=== PATIENT | male | born 1965 | race Caucasian/White ===

== ENCOUNTER 2022-10-29 18:15 | Inpatient (IN) | payer MEDICARE, OTHER ==
[~2022-10-29] VITALS: Ht 170.2 cm; Wt 71.2 kg
--- NOTE | 2022-10-29 18:30 | NUR ---
Pt brought by self,A&appropiate to age , pt presents to ER with intermittent nosebleed after he had heart surgery (stent )1 week ago at [facility] , no bleeding noted at this time , pt denies chest pain , c/o mild SOB , O2 98%, skin pink and warm, cap refill <3.
[2022-10-29 18:57] VITALS: BP_SYST 114
--- NOTE | 2022-10-29 19:00 | NUR ---
MD Rodrigues examining pt.
[2022-10-29 21:05] LABS: BASOPHILS % (AUTO) 0.2 % (0.0-2.0); EOSINOPHILS # (AUTO) 0.1 K/uL (0.0-0.4); EOSINOPHILS % (AUTO) 1.3 % (0.0-4.0); HEMATOCRIT 31.4 % (36-54); HEMOGLOBIN 10.6 g/dL (14.0-18.0); LYMPHOCYTES # (AUTO) 1.8 K/uL (1.0-5.5); LYMPHOCYTES % (AUTO) 15.9 % (20.5-51.5); MEAN CORPUSCULAR HEMOGLOBIN 28 pg (27-31); MEAN CORPUSCULAR HGB CONC 34 % (32-36); MEAN CORPUSCULAR VOLUME 84 fL (79.0-98.0); MONOCYTES # (AUTO) 1.2 K/uL (0.0-1.0); MONOCYTES % (AUTO) 10.9 % (1.7-9.3); NEUTROPHILS % (AUTO) 71.7 % (40.0-70.0); PLATELET COUNT (AUTO) 420 K/uL (130-430); RED BLOOD CELL COUNT(AUTO) 3.74 MIL/uL (4.2-6.2); RED CELL DISTRIBUTION WIDTH 12.9 % (9.0-15.0); WHITE BLOOD COUNT (AUTO) 11.1 K/uL (4.8-10.8)
[2022-10-29 21:25] LABS: CALCIUM 8.5 mg/dL (8.4-11.0); CREATININE 2.26 mg/dL (0.55-1.30)
[2022-10-29 21:30] LABS: ALBUMIN 2.4 g/dL (3.4-4.8); TOTAL BILIRUBIN 0.4 mg/dL (0.0-1.0)
[2022-10-29 21:45] LABS: INR 1.1 (0.80-1.20); PROTHROMBIN TIME 11.3 SECS (9.5-12.5)
[2022-10-29] MEDS ORDERED: HYDR25TA4 PO (22:14)
[2022-10-29] MEDS ORDERED: LEVE1000 PO (22:14)
[2022-10-29] MEDS ORDERED: ASA81 PO (22:14)
[2022-10-29] MEDS ORDERED: TICA60TA PO (22:14)
[2022-10-29] MEDS ORDERED: PARO-148 PO (22:14)
[2022-10-29] MEDS ORDERED: INSU100V SUBCUT (22:14)
[2022-10-29] MEDS ORDERED: LIP20 PO (22:14)
[2022-10-29] MEDS ORDERED: METO25TA3 PO (22:14)
[2022-10-29] MEDS ORDERED: INSU100V9 SQ (22:14)
[2022-10-29] MEDS ORDERED: ATOV750O4 PO (22:14)
[2022-10-29] MEDS ORDERED: VITAMIN D3 PO (22:14)
[2022-10-29] MEDS ORDERED: DOLU50TA PO (22:14)
[2022-10-29] MEDS ORDERED: DARU1TAB PO (22:14)
--- NOTE | 2022-10-29 22:15 | NUR ---
Medication reconciliation completed with information provided by patient . Any prior medication reconciliation on file was reviewed and corrected.
--- NOTE | 2022-10-29 22:56 | NUR ---
Admit bed requested Patient will be admitted to care of . Admitted to TELEMETRY unit. Diagnosis CHEST PAIN Inpatient (Yes or No) Y Observation (Yes or No) N Orientation concerns or request close to nursing station (Yes or No) N Covid Status NEG On vent or bipap N Isolation requirements N Needs a sitter N From Home (Yes or if No enter name of facility) Y Requires Dialysis Y Med Rec Completed (Yes of No) Y
[2022-10-29] MEDS ORDERED: NITROGLYCERIN 0.4 MG TAB.SUBL SL PRN ×2 (23:00→23:15)
--- NOTE | 2022-10-29 23:55 | NUR ---
#22 gauge angiocath placed to L HAND. Use of asceptic technique. Opsite placed over site. Blood return noted. Flushed with 10 cc of normal saline. No evidence of infiltration noted. Patient tolerated well.
--- NOTE | 2022-10-30 02:27 | NUR ---
Consultation Paged Reason for Consultation: Chest Pain Was consult called: Y Person who was notified: [place] Consulting Physician: Dr. Mayfield Ordering Physician: Dr. Brito
[2022-10-30 02:30] VITALS: BP_SYST 127
--- NOTE | 2022-10-30 02:57 | NUR ---
Patient will be admitted to care of MD SURESH. Admitted to TELE unit. Will go to room 111A. Complete and up to date summary report printed. SBAR report given at bedside to BHARATI Rainey with opportunity for questions.
[2022-10-30 04:27] VITALS: BP_SYST 130
--- NOTE | 2022-10-30 07:50 | NUR ---
Dr. Mayfield made aware regrading elevated TROP 3634. No new orders received.
[2022-10-30 08:00] VITALS: BP_SYST 128
[2022-10-30] MEDS ORDERED: TICAGRELOR 60 MG TABLET PO SCH (09:00)
[2022-10-30] MEDS ORDERED: COBICISTAT PO SCH (09:00)
[2022-10-30] MEDS ORDERED: VITAMIN D3 25 MCG PO SCH (09:00)
[2022-10-30] MEDS ORDERED: DOLUTEGRAVIR SODIUM 50 MG PO SCH (09:00)
[2022-10-30] MEDS ORDERED: DARUNAVIR PO SCH (09:00)
[2022-10-30] MEDS: ATOVAQUONE 750 MG/5 ML UDC PO SCH (09:19)
[2022-10-30] MEDS: ASPIRIN 81 MG TAB.CHEW PO SCH (09:20)
[2022-10-30] MEDS: levETIRAcetam 500 MG TABLET PO SCH ×2 (09:20→20:26)
[2022-10-30] MEDS: PARoxetine HCL 20 MG TABLET PO SCH (09:20)
[2022-10-30] MEDS: ATORVASTATIN 20 MG TABLET PO SCH (09:20)
[2022-10-30] MEDS: HYDROCHLOROTHIAZIDE 25 MG TABLET (HCTZ) PO SCH (09:20)
[2022-10-30] MEDS: INSULIN GLARGINE 100 UNITS/ML, 10 ML VIAL SQ SCH (09:23)
[2022-10-30] MEDS: METOPROLOL SUCCINATE 25 MG TAB.SR.24H (TOPROL XL) PO SCH (09:29)
[2022-10-30 09:37] LABS: CHOLESTEROL 137 mg/dL (<200); HDL CHOLESTEROL 37 mg/dL (>45); TRIGLYCERIDES 162 mg/dL (30-150)
[2022-10-30] MEDS: INSULIN REGULAR, HUMAN 100 UNITS/ML, 3 ML VIAL (humuLIN R) SUBCUT PRN (11:42)
[2022-10-30 11:59] VITALS: BP_SYST 143
[2022-10-30 15:43] VITALS: BP_SYST 119
--- NOTE | 2022-10-30 16:44 | NUR ---
CRITICAL LAB: from Laboratory called with critical lab value . Medical record number and patient name verified. Read back of values done. Dr. Mayfield notified of value. No new orders given at this time.
[2022-10-30 20:00] VITALS: BP_SYST 137
[2022-10-30] MEDS: TICAGRELOR 90 MG TABLET PO SCH (20:26)
[2022-10-31 00:05] VITALS: BP_SYST 119
[2022-10-31 07:23] LABS: BASOPHILS % (AUTO) 0.1 % (0.0-2.0); EOSINOPHILS # (AUTO) 0.3 K/uL (0.0-0.4); EOSINOPHILS % (AUTO) 2.6 % (0.0-4.0); HEMATOCRIT 30.3 % (36-54); HEMOGLOBIN 10.5 g/dL (14.0-18.0); LYMPHOCYTES % (AUTO) 18.3 % (20.5-51.5); MEAN CORPUSCULAR HEMOGLOBIN 29 pg (27-31); MEAN CORPUSCULAR HGB CONC 35 % (32-36); MEAN CORPUSCULAR VOLUME 83 fL (79.0-98.0); MONOCYTES # (AUTO) 1.5 K/uL (0.0-1.0); MONOCYTES % (AUTO) 13.4 % (1.7-9.3); NEUTROPHILS # (AUTO) 7.3 K/uL (1.8-7.7); NEUTROPHILS % (AUTO) 65.6 % (40.0-70.0); PLATELET COUNT (AUTO) 471 K/uL (130-430); RED BLOOD CELL COUNT(AUTO) 3.63 MIL/uL (4.2-6.2); RED CELL DISTRIBUTION WIDTH 13.2 % (9.0-15.0); WHITE BLOOD COUNT (AUTO) 11.2 K/uL (4.8-10.8)
[2022-10-31 07:25] LABS: ALBUMIN 2.4 g/dL (3.4-4.8); CALCIUM 8.7 mg/dL (8.4-11.0); CREATININE 2.28 mg/dL (0.55-1.30); TOTAL BILIRUBIN 0.4 mg/dL (0.0-1.0)
[2022-10-31 08:00] VITALS: BP_SYST 124
--- NOTE | 2022-10-31 08:00 | NUR ---
Start shift Pt sitting up in bed eating his breakfast. No pain/discomfort or SOB/resp distress was noted at this time. Pt's bed in low position and side rails X2 raised. No needs noted at this time. Pt stable.
[2022-10-31] MEDS: ATOVAQUONE 750 MG/5 ML UDC PO SCH (08:45)
[2022-10-31] MEDS: PARoxetine HCL 20 MG TABLET PO SCH (08:46)
[2022-10-31] MEDS: HYDROCHLOROTHIAZIDE 25 MG TABLET (HCTZ) PO SCH (08:46)
[2022-10-31] MEDS: ATORVASTATIN 20 MG TABLET PO SCH (08:46)
[2022-10-31] MEDS: ASPIRIN 81 MG TAB.CHEW PO SCH (08:46)
[2022-10-31] MEDS: TICAGRELOR 90 MG TABLET PO SCH (08:48)
[2022-10-31] MEDS: METOPROLOL SUCCINATE 25 MG TAB.SR.24H (TOPROL XL) PO SCH (08:48)
[2022-10-31] MEDS: levETIRAcetam 500 MG TABLET PO SCH (08:50)
[2022-10-31] MEDS: INSULIN GLARGINE 100 UNITS/ML, 10 ML VIAL SQ SCH (08:57)
[2022-10-31] MEDS ORDERED: DARUNAVIR PO SCH (09:00)
[2022-10-31] MEDS ORDERED: CHOLECALCIFEROL (VITAMIN D3) 2,000 UNIT TABLET PO SCH (09:00)
[2022-10-31] MEDS ORDERED: TIVICAY PO SCH ×3 (09:00)
[2022-10-31] MEDS ORDERED: PREZCOBIX PO SCH ×2 (09:00)
[2022-10-31] MEDS ORDERED: COBICISTAT PO SCH (09:00)
[2022-10-31] MEDS: INSULIN REGULAR, HUMAN 100 UNITS/ML, 3 ML VIAL (humuLIN R) SUBCUT PRN (11:13)
[2022-10-31 12:00] VITALS: BP_SYST 118
--- NOTE | 2022-10-31 12:38 | NUR ---
CRITICAL LAB Call from lab for critical lab Troponin 2761. Dr Mayfield made aware no new orders given at this time.
[2022-10-31 15:33] VITALS: BP_SYST 127
--- NOTE | 2022-10-31 16:15 | NUR ---
PD/C Patient Patient given medication reconciliation form and D/C instructions. Exit Care provided. Patient verbalized understanding. MD discussed with patient the results and treatment provided. Ambulatory with steady gait for discharge to home. Patient in stable condition, ID band removed. IV catheter removed, intact and dressing applied, no active bleeding. Patient educated on pain management. All belongings sent with patient.
--- NOTE | 2022-10-31 16:20 | NUR ---
Note Pt off the floor via wheelchair to car. Tele unit was dc'd and returned to bus driver/monitor.
[2022-10-31 16:35] VITALS: BP_SYST 133
== END 2022-10-31 16:20 | disposition home or self-care (01) | DRG 190 ==
LOC: SED 18:15 → STU 22:47
PROVIDERS: ADMIT Family Medicine; ATTEND Family Medicine
DX: I21.9 Acute myocardial infarction, unspecified (principal); E43 Unspecified severe protein-calorie malnutrition; I13.0 Hypertensive heart and chronic kidney disease with heart failure and stage 1 through stage 4 chronic kidney disease, or unspecified chronic kidney disease; I69.354 Hemiplegia and hemiparesis following cerebral infarction affecting left non-dominant side; I50.40 Unspecified combined systolic (congestive) and diastolic (congestive) heart failure; E11.22 Type 2 diabetes mellitus with diabetic chronic kidney disease; E78.5 Hyperlipidemia, unspecified; D64.9 Anemia, unspecified; I25.10 Atherosclerotic heart disease of native coronary artery without angina pectoris; Z20.822 Contact with and (suspected) exposure to COVID-19; N18.9 Chronic kidney disease, unspecified; R04.0 Epistaxis; Z87.891 Personal history of nicotine dependence; Z95.5 Presence of coronary angioplasty implant and graft; Z79.82 Long term (current) use of aspirin; Z79.899 Other long term (current) drug therapy; Z68.24 Body mass index [BMI] 24.0-24.9, adult
CPT/HCPCS: 36415; 71045; 80053; 80061; 82550; 83880; 84484; 85025; 85610-TC; 85730-TC; 87081; 93005; 93306; 99285; G0378; J1815

== ENCOUNTER 2022-11-21 21:10 | Emergency (ER) | payer OTHER ==
[~2022-11-21] VITALS: Ht 170.2 cm; Wt 68.0 kg
[~2022-11-21 21:10] MED LIST: ASA81 PO; ATOV750O4 PO; DARU1TAB PO; DOLU50TA PO; HYDR25TA4 PO; INSU100V SUBCUT; INSU100V9 SQ; LEVE1000 PO; LIP20 PO; METO25TA3 PO; PARO-148 PO; TICA60TA PO; VITAMIN D3 PO
[2022-11-21 21:24] VITALS: BP_SYST 103
[2022-11-21 21:55] VITALS: BP_SYST 103
[2022-11-21 23:25] LABS: BASOPHILS % (AUTO) 0.1 % (0.0-2.0); EOSINOPHILS # (AUTO) 0.2 K/uL (0.0-0.4); EOSINOPHILS % (AUTO) 2.2 % (0.0-4.0); HEMATOCRIT 26.3 % (36-54); HEMOGLOBIN 8.9 g/dL (14.0-18.0); LYMPHOCYTES # (AUTO) 1.8 K/uL (1.0-5.5); LYMPHOCYTES % (AUTO) 21.4 % (20.5-51.5); MEAN CORPUSCULAR HEMOGLOBIN 29 pg (27-31); MEAN CORPUSCULAR HGB CONC 34 % (32-36); MEAN CORPUSCULAR VOLUME 85 fL (79.0-98.0); MONOCYTES # (AUTO) 0.8 K/uL (0.0-1.0); MONOCYTES % (AUTO) 9.5 % (1.7-9.3); NEUTROPHILS # (AUTO) 5.8 K/uL (1.8-7.7); NEUTROPHILS % (AUTO) 66.8 % (40.0-70.0); PLATELET COUNT (AUTO) 323 K/uL (130-430); RED BLOOD CELL COUNT(AUTO) 3.09 MIL/uL (4.2-6.2); RED CELL DISTRIBUTION WIDTH 14.4 % (9.0-15.0); WHITE BLOOD COUNT (AUTO) 8.6 K/uL (4.8-10.8)
[2022-11-21 23:35] LABS: CALCIUM 8.8 mg/dL (8.4-11.0); CREATININE 2.44 mg/dL (0.55-1.30)
[2022-11-21 23:38] LABS: INR 1.2 (0.80-1.20); PROTHROMBIN TIME 11.8 SECS (9.5-12.5)
[2022-11-21 23:39] LABS: ALBUMIN 2.7 g/dL (3.4-4.8); TOTAL BILIRUBIN 0.2 mg/dL (0.0-1.0)
[2022-11-22] MEDS ORDERED: PENI250T2 PO (00:06)
== END 2022-11-22 00:23 | disposition home or self-care (01) ==
LOC: SED 21:10
DX: K11.20 Sialoadenitis, unspecified (principal); R04.0 Epistaxis; R22.0 Localized swelling, mass and lump, head; Z79.4 Long term (current) use of insulin; Z79.899 Other long term (current) drug therapy
CPT/HCPCS: 36415; 70486-TC; 76376; 80053; 85025; 85610-TC; 85730-TC; 86886; 86900; 86901; 99284